=== PATIENT | male | born 1970 | race Caucasian/White ===

== ENCOUNTER 2022-07-16 07:04 | Day surgery (SDC) | payer OTHER ==
[~2022-07-16] VITALS: Ht 176.5 cm; Wt 81.6 kg
[2022-07-16] MEDS ORDERED: diphenhydrAMINE 50 MG/ML VIAL ONE (07:41)
[2022-07-16] MEDS ORDERED: fentaNYL citrate 0.05 MG/ML VIAL ONE (07:41)
[2022-07-16] MEDS ORDERED: MIDAZOLAM 5 MG/5 ML VIAL ONE (07:42)
[2022-07-16] MEDS ORDERED: LIDOCAINE 2% 100 MG/5 ML UJET TP ONE (07:42)
[2022-07-16] MEDS ORDERED: diphenhydrAMINE 50 MG/ML VIAL IVP ONE (08:25)
[2022-07-16] MEDS ORDERED: fentaNYL citrate 0.05 MG/ML VIAL IVP ONE (08:25)
[2022-07-16] MEDS ORDERED: MIDAZOLAM 5 MG/5 ML VIAL IV ONE (08:25)
== END 2022-07-16 09:51 | disposition home or self-care (01) ==
LOC: MDS 07:04 → MMU 07:04 → MDS 09:51
PROVIDERS: ATTEND Internal Medicine Gastroenterology
DX: K62.5 Hemorrhage of anus and rectum (principal); K63.5 Polyp of colon; K63.89 Other specified diseases of intestine; E78.00 Pure hypercholesterolemia, unspecified; K21.9 Gastro-esophageal reflux disease without esophagitis; Z79.899 Other long term (current) drug therapy; Z20.822 Contact with and (suspected) exposure to COVID-19
CPT/HCPCS: 45380; 45385; 87426; J1200; J2250; J3010; 88305